=== PATIENT | male | born 1950 | race Two or more races ===

== ENCOUNTER 2024-06-16 19:30 | Inpatient (IN) | payer MEDICARE, OTHER ==
[~2024-06-16] VITALS: Ht 172.7 cm; Wt 60.8 kg
[2024-06-16 22:27] LABS: BASOPHILS % (AUTO) 0.7 % (0.0-2.0); EOSINOPHILS # (AUTO) 0.2 K/uL (0.0-0.7); HEMATOCRIT 39.9 % (36.7-47.1); HEMOGLOBIN 12.8 g/dL (12.5-16.3); LYMPHOCYTES # (AUTO) 1.3 K/uL (0.8-4.8); LYMPHOCYTES % (AUTO) 21.5 % (20.5-51.5); MEAN CORPUSCULAR HEMOGLOBIN 26.1 uug (23.8-33.4); MEAN CORPUSCULAR HGB CONC 32 g/dL (32.5-36.3); MEAN CORPUSCULAR VOLUME 81.1 fL (73.0-96.2); MONOCYTES # (AUTO) 0.6 K/uL (0.1-1.30); MONOCYTES % (AUTO) 10.4 % (0.0-11.0); NEUTROPHILS # (AUTO) 3.8 K/uL (1.8-8.9); NEUTROPHILS % (AUTO) 64.4 % (38.5-71.5); PLATELET COUNT (AUTO) 254 K/uL (152-348); RED BLOOD CELL COUNT(AUTO) 4.91 MIL/uL (4.06-5.63); RED CELL DISTRIBUTION WIDTH 16.3 % (12.1-16.2); WHITE BLOOD COUNT (AUTO) 5.8 K/uL (3.6-10.2)
[2024-06-16 22:36] LABS: DIFFERENTIAL COMMENT 1
[2024-06-16 22:39] LABS: CARBON DIOXIDE 31 mmol/L (21-32); CHLORIDE 103 mmol/L (98-107); CREATININE 0.9 mg/dL (0.6-1.3); GLUCOSE 103 mg/dL (74-106); POTASSIUM 4.2 mmol/L (3.5-5.1); SODIUM SERUM 143 mmol/L (136-145); UREA NITROGEN, BLOOD 25 mg/dL (7-18)
[2024-06-16 22:40] LABS: *AMPHETAMINE, URINE NEGATIVE (NEGATIVE); *BARBITURATE, URINE NEGATIVE (NEGATIVE); *BENZODIAZEPINE, URINE NEGATIVE (NEGATIVE); *BILIRUBIN,URIN NEGATIVE (NEGATIVE); *BLOOD, URINE NEGATIVE (NEGATIVE); *CANNABINOID, URINE NEGATIVE (NEGATIVE); *CLARITY,URINE CLEAR (CLEAR); *COCCAINE, URINE NEGATIVE (NEGATIVE); *COLOR,URINE YELLOW (YELLOW); *KETONES,URINE NEGATIVE (NEGATIVE); *OPIATE, URINE NEGATIVE (NEGATIVE); *PHENCYCLIDINE SCREEN,URINE NEGATIVE (NEGATIVE); *PROTEIN,URINE NEGATIVE (NEGATIVE); *UROBILINOGEN,URINE 0.2 E.U./dl (NORMAL); FENTANYL, URINE NEGATIVE (NEGATIVE); LEUKOCYTE ESTERASE ,URINE NEGATIVE (NEGATIVE); NITRITE, URINE NEGATIVE (NEGATIVE); UGLUCOSE NEGATIVE (NEGATIVE)
[2024-06-16 22:52] LABS: ALANINE AMINOTRANSFERASE 18 U/L (16-63); ALBUMIN 3.3 g/dL (3.4-5.0); ALKALINE PHOSPHATASE 111 U/L (50-136); ASPARTATE AMINOTRANSFERASE 17 U/L (15-37); BILIRUBIN,TOTAL 0.5 mg/dL (0.2-1.0); CALCIUM 8.5 mg/dL (8.5-10.1); TOTAL PROTEIN, SERUM 7.7 g/dL (6.4-8.2)
[2024-06-16 22:57] LABS: ETHANOL < 3 MG/DL (0-10)
[2024-06-17] MEDS ORDERED: TAMS-3 PO (03:58)
[2024-06-17] MEDS ORDERED: MAGN400O6 PO (03:58)
[2024-06-17] MEDS ORDERED: DOCU100C36 PO (03:58)
[2024-06-17] MEDS ORDERED: ACET-3117 PO ×2 (03:58)
[2024-06-17] MEDS ORDERED: HYDR-894 PO (03:58)
[2024-06-17 16:14] VITALS: BP 171/78; TEMP 97.9; O2SAT 98
[2024-06-17] MEDS ORDERED: MAGNESIUM HYDROXIDE 30 ML LIQUID UDC PO PRN ×2 (17:15→18:45)
[2024-06-17] MEDS ORDERED: ACETAMINOPHEN 325 MG TABLET PO PRN (17:15)
[2024-06-17] MEDS ORDERED: MAG HYDROX/AL HYDROX/SIMETH 30 ML LIQUID UDC PO PRN (17:15)
[2024-06-17] MEDS ORDERED: ZOLPIDEM 5 MG TABLET PO PRN (17:15)
[2024-06-17] MEDS ORDERED: TEMAZEPAM 7.5 MG CAPSULE PO PRN (18:00)
[2024-06-17] MEDS: BLOOD SUGAR DIAGNOSTIC 1 EACH STRIP VI ONE (18:45)
[2024-06-17] MEDS: hydrALAZINE HCL 25 MG TABLET PO SCH (18:45)
[2024-06-17] MEDS ORDERED: Medication Not On Formulary EA (Acetaminophen 650 MG) PO PRN (18:45)
[2024-06-17 20:00] VITALS: BP 131/69; TEMP 98.2; O2SAT 94
[2024-06-17] MEDS: DIVALPROEX SPRINKLE 125 MG CAP.SPRINK PO SCH (21:10)
[2024-06-17] MEDS: TAMSULOSIN HCL 0.4 MG CAP.SR.24H PO SCH (21:10)
[2024-06-17] MEDS: QUETIAPINE FUMARATE 25 MG TABLET PO SCH (21:11)
[2024-06-18 08:40] VITALS: BP 129/68; TEMP 98; O2SAT 98
[2024-06-18 08:55] LABS: BASOPHILS % (AUTO) 0.6 % (0.0-2.0); EOSINOPHILS # (AUTO) 0.1 K/uL (0.0-0.7); EOSINOPHILS % (AUTO) 1.1 % (0.0-7.0); HEMATOCRIT 41.1 % (36.7-47.1); HEMOGLOBIN 13.3 g/dL (12.5-16.3); LYMPHOCYTES # (AUTO) 1.5 K/uL (0.8-4.8); LYMPHOCYTES % (AUTO) 19.8 % (20.5-51.5); MEAN CORPUSCULAR HEMOGLOBIN 26.5 uug (23.8-33.4); MEAN CORPUSCULAR HGB CONC 32 g/dL (32.5-36.3); MEAN CORPUSCULAR VOLUME 81.7 fL (73.0-96.2); MONOCYTES # (AUTO) 0.6 K/uL (0.1-1.30); MONOCYTES % (AUTO) 8.2 % (0.0-11.0); NEUTROPHILS # (AUTO) 5.1 K/uL (1.8-8.9); NEUTROPHILS % (AUTO) 70.3 % (38.5-71.5); PLATELET COUNT (AUTO) 273 K/uL (152-348); RED BLOOD CELL COUNT(AUTO) 5.03 MIL/uL (4.06-5.63); RED CELL DISTRIBUTION WIDTH 16.2 % (12.1-16.2); WHITE BLOOD COUNT (AUTO) 7.3 K/uL (3.6-10.2)
[2024-06-18 09:00] LABS: DIFFERENTIAL COMMENT 1
[2024-06-18] MEDS: DOCUSATE SODIUM 100 MG CAPSULE PO SCH (09:30)
[2024-06-18 09:46] LABS: ALANINE AMINOTRANSFERASE 21 U/L (16-63); ALBUMIN 3.3 g/dL (3.4-5.0); ALKALINE PHOSPHATASE 114 U/L (50-136); ASPARTATE AMINOTRANSFERASE 20 U/L (15-37); CALCIUM 8.6 mg/dL (8.5-10.1); CARBON DIOXIDE 30 mmol/L (21-32); CHLORIDE 105 mmol/L (98-107); CREATININE 0.8 mg/dL (0.6-1.3); GLUCOSE 98 mg/dL (74-106); POTASSIUM 4.2 mmol/L (3.5-5.1); SODIUM SERUM 142 mmol/L (136-145); TOTAL PROTEIN, SERUM 7.6 g/dL (6.4-8.2); UREA NITROGEN, BLOOD 22 mg/dL (7-18)
[2024-06-18 16:04] VITALS: BP 101/47; TEMP 98; O2SAT 96
[2024-06-18] MEDS: hydrALAZINE HCL 25 MG TABLET PO SCH ×2 (17:00→22:23)
[2024-06-18] MEDS: ENSURE ENLIVE (VAN) 240 ML LIQUID PO SCH (17:00)
[2024-06-18 20:00] VITALS: BP 124/52; TEMP 97.8; O2SAT 97
[2024-06-19] MEDS: LORAZEPAM 0.5 MG TABLET PO PRN (03:49)
[2024-06-19 09:25] VITALS: BP 126/61; TEMP 98; O2SAT 100
[2024-06-19 15:33] VITALS: BP 116/49; TEMP 98; O2SAT 98
[2024-06-19 20:00] VITALS: BP 120/57; TEMP 98; O2SAT 97
[2024-06-20 08:20] VITALS: TEMP 97.8; O2SAT 96
[2024-06-20 16:14] VITALS: BP 108/42; TEMP 98.3; O2SAT 98
[2024-06-20 20:00] VITALS: BP 103/42; TEMP 98.2; O2SAT 96
[2024-06-20] MEDS: DIVALPROEX 250 MG TABLET.DR PO SCH (21:00)
[2024-06-21 08:30] VITALS: BP 116/47; TEMP 98; O2SAT 100
[2024-06-21 16:37] VITALS: BP 109/51; TEMP 98.4; O2SAT 96
[2024-06-21 20:39] VITALS: BP 120/49; TEMP 98.2; O2SAT 99
[2024-06-22 08:23] VITALS: BP 130/59; TEMP 97.3; O2SAT 100
[2024-06-22 15:39] VITALS: BP 125/64; TEMP 97.9; O2SAT 96
[2024-06-22 20:27] VITALS: BP 100/60; TEMP 97.2; O2SAT 99
[2024-06-23 08:18] VITALS: BP 123/61; TEMP 97.6; O2SAT 100
[2024-06-23 16:20] VITALS: BP 134/59; TEMP 98; O2SAT 100
[2024-06-23 20:00] VITALS: BP 121/56; TEMP 98; O2SAT 98
[2024-06-23] MEDS: QUETIAPINE FUMARATE 25 MG TABLET PO SCH (21:55)
[2024-06-24 08:06] VITALS: BP 123/56; TEMP 98; O2SAT 98
[2024-06-24 15:19] VITALS: BP 128/62; TEMP 98; O2SAT 98
[2024-06-24] MEDS: DIVALPROEX 250 MG TABLET.DR PO SCH (17:20)
[2024-06-24 20:00] VITALS: BP 135/69; TEMP 97.7; O2SAT 98
[2024-06-25 08:08] VITALS: BP 140/59; TEMP 98; O2SAT 98
[2024-06-25] MEDS: DIVALPROEX 250 MG TABLET.DR PO SCH (13:37)
[2024-06-26 08:00] VITALS: BP 87/49; TEMP 97.6; O2SAT 98
[2024-06-26 16:00] VITALS: BP 94/58; TEMP 97.2; O2SAT 97
[2024-06-26 21:19] VITALS: BP 98/65; TEMP 98; O2SAT 99
[2024-06-27 08:16] VITALS: BP 123/71; TEMP 98.5; O2SAT 100
[2024-06-27 19:51] VITALS: BP 129/81; TEMP 97.7; O2SAT 100
[2024-06-28 08:20] VITALS: BP 137/71; TEMP 98; O2SAT 100
[2024-06-28 19:59] VITALS: BP 109/42; TEMP 98.2; O2SAT 99
[2024-06-29 16:55] VITALS: BP 132/73; TEMP 98.1; O2SAT 99
[2024-06-29 20:48] VITALS: BP 153/82; TEMP 98.2; O2SAT 97
[2024-06-30 08:16] VITALS: BP 140/72; TEMP 97.4; O2SAT 100
[2024-06-30 14:00] VITALS: BP 100/62
== END 2024-06-30 14:30 | DRG 885 ==
LOC: ER 19:30 → GPS 06-17 15:52
PROVIDERS: ADMIT Psychiatry & Neurology Psychosomatic Medicine; ATTEND Nurse Practitioner Acute Care
DX: F39 Unspecified mood [affective] disorder (principal); N18.9 Chronic kidney disease, unspecified; F03.911 Unspecified dementia, unspecified severity, with agitation; E44.1 Mild protein-calorie malnutrition; K51.90 Ulcerative colitis, unspecified, without complications; E88.09 Other disorders of plasma-protein metabolism, not elsewhere classified; F31.9 Bipolar disorder, unspecified; Z81.8 Family history of other mental and behavioral disorders; N40.0 Benign prostatic hyperplasia without lower urinary tract symptoms; I12.9 Hypertensive chronic kidney disease with stage 1 through stage 4 chronic kidney disease, or unspecified chronic kidney disease; Z91.81 History of falling; R32 Unspecified urinary incontinence; R79.89 Other specified abnormal findings of blood chemistry; Z63.8 Other specified problems related to primary support group; Z79.899 Other long term (current) drug therapy; Z68.20 Body mass index [BMI] 20.0-20.9, adult; Z91.199 Patient's noncompliance with other medical treatment and regimen due to unspecified reason
CPT/HCPCS: 36415; 71045; 80164; 84484; 85025; 93005; G0480; J3490

== ENCOUNTER 2024-12-11 08:41 | Inpatient (IN) | payer MEDICARE, OTHER ==
[~2024-12-11] VITALS: Ht 172.7 cm; Wt 60.8 kg
[~2024-12-11 08:41] MED LIST: ACET-3117 PO; DOCU100C36 PO; HYDR-894 PO; MAGN400O6 PO; TAMS-3 PO
[2024-12-11 10:14] VITALS: BP 151/65; TEMP 98; O2SAT 100
[2024-12-11] MEDS ORDERED: MAGNESIUM HYDROXIDE 30 ML LIQUID UDC PO PRN (10:45)
[2024-12-11] MEDS ORDERED: BLOOD SUGAR DIAGNOSTIC 1 EACH STRIP VI ONE (10:45)
[2024-12-11] MEDS ORDERED: ACETAMINOPHEN 325 MG TABLET PO PRN (10:45)
[2024-12-11] MEDS ORDERED: MAG HYDROX/AL HYDROX/SIMETH 30 ML LIQUID UDC PO PRN (10:45)
[2024-12-11] MEDS: BLOOD SUGAR DIAGNOSTIC 1 EACH STRIP VI ONE (11:10)
[2024-12-11] MEDS ORDERED: TRAZ-182 PO (11:16)
[2024-12-11] MEDS ORDERED: ACET325T53 PO (11:16)
[2024-12-11] MEDS ORDERED: DIVA250T4 PO (11:16)
[2024-12-11] MEDS ORDERED: MULT-1045 PO (11:16)
[2024-12-11] MEDS ORDERED: ACET-2154 PO ×2 (11:16)
[2024-12-11] MEDS ORDERED: LORAZEPAM 0.5 MG TABLET PO ONE (12:00)
[2024-12-11] MEDS ORDERED: TEMAZEPAM 7.5 MG CAPSULE PO ONE (12:00)
[2024-12-11] MEDS: DIVALPROEX 250 MG TABLET.DR PO SCH (17:00)
[2024-12-11] MEDS: TAMSULOSIN HCL 0.4 MG CAP.SR.24H PO SCH (20:14)
[2024-12-12] MEDS: DOCUSATE SODIUM 100 MG CAPSULE PO SCH (08:06)
[2024-12-12 08:56] VITALS: BP 122/56; TEMP 98; O2SAT 99
[2024-12-12] MEDS: MULTIVITAMINS,THERAPEUTIC TABLET PO SCH (09:00)
[2024-12-12 15:30] VITALS: O2SAT 99
[2024-12-12] MEDS: ENSURE ENLIVE (VAN) 240 ML LIQUID PO SCH (17:00)
[2024-12-13 09:11] VITALS: BP 126/52; TEMP 98; O2SAT 98
[2024-12-13 20:00] VITALS: BP 128/51; O2SAT 99
[2024-12-13] MEDS: LORAZEPAM 1 MG TABLET PO PRN (20:57)
[2024-12-15 08:18] VITALS: BP 122/61; TEMP 98
[2024-12-15] MEDS: OLANZAPINE 10 MG VIAL IM STA (09:22)
[2024-12-15 20:01] VITALS: BP 118/64; TEMP 98.2; O2SAT 97
[2024-12-17] MEDS ORDERED: OLANZAPINE 10 MG VIAL IM PRN (09:45)
[2024-12-17] MEDS: OLANZAPINE 2.5 MG TABLET PO SCH (10:16)
[2024-12-17 20:00] VITALS: BP 97/62; O2SAT 95
[2024-12-17] MEDS: DIVALPROEX 250 MG TABLET.DR PO SCH (20:44)
[2024-12-18 08:31] VITALS: BP 106/56; TEMP 98.1; O2SAT 99
[2024-12-18 16:14] VITALS: BP 114/62; TEMP 98; O2SAT 98
[2024-12-19 08:21] VITALS: BP 112/69; TEMP 98; O2SAT 98
[2024-12-19] MEDS: DIVALPROEX 250 MG TABLET.DR PO SCH (17:21)
[2024-12-19] MEDS: OLANZAPINE 2.5 MG TABLET PO SCH (17:21)
[2024-12-19] MEDS: OLANZAPINE 5 MG TABLET PO SCH (21:13)
[2024-12-19] MEDS: TEMAZEPAM 7.5 MG CAPSULE PO PRN (23:06)
[2024-12-20 09:53] VITALS: BP 124/58; TEMP 98; O2SAT 100
[2024-12-20 15:47] VITALS: BP 139/74; TEMP 98; O2SAT 96
[2024-12-21] MEDS: OLANZAPINE 5 MG TABLET PO SCH (17:26)
[2024-12-23 07:46] LABS: PLATELET COUNT (AUTO) 261 K/uL (152-348); RED BLOOD CELL COUNT(AUTO) 4.63 MIL/uL (4.06-5.63); RED CELL DISTRIBUTION WIDTH 14.3 % (12.1-16.2); WHITE BLOOD COUNT (AUTO) 8.5 K/uL (3.6-10.2)
[2024-12-23 08:28] LABS: ASPARTATE AMINOTRANSFERASE 16 U/L (15-37); CREATININE 1.1 mg/dL (0.6-1.3); SODIUM SERUM 144 mmol/L (136-145); TOTAL PROTEIN, SERUM 7.0 g/dL (6.4-8.2); UREA NITROGEN, BLOOD 28 mg/dL (7-18)
[2024-12-23 10:12] LABS: VALPROIC ACID 41 ug/mL (50-100)
[2024-12-24 08:50] VITALS: BP 121/67; TEMP 97.9; O2SAT 99
== END 2024-12-24 11:30 | DRG 885 ==
LOC: GPS 08:41
PROVIDERS: ADMIT Psychiatry & Neurology Psychosomatic Medicine; ATTEND Internal Medicine
DX: F29 Unspecified psychosis not due to a substance or known physiological condition (principal); F03.93 Unspecified dementia, unspecified severity, with mood disturbance; F03.94 Unspecified dementia, unspecified severity, with anxiety; F39 Unspecified mood [affective] disorder; N40.0 Benign prostatic hyperplasia without lower urinary tract symptoms; I10 Essential (primary) hypertension; Z79.899 Other long term (current) drug therapy; Z63.8 Other specified problems related to primary support group; Z91.81 History of falling; F32.A Depression, unspecified; R53.1 Weakness
CPT/HCPCS: 36415; 80164; 85025; J2358; J3490